=== PATIENT | female | born 1965 | race Caucasian/White ===

== ENCOUNTER 2016-09-04 17:51 | Emergency (ER) | payer BC, MEDICAID ==
[~2016-09-04] VITALS: Ht 167.6 cm; Wt 79.3 kg
[~2016-09-04 17:51] MED LIST: ACET1TAB52 PO; ACET325T14 PO; ALBU8.5H5 INH; AMIO200T42 PO; BRONCHAID PO; CEPH-368 PO; CLIN300C93 PO; DIPH25CA61 PO; GARL400T PO; HYDR-3138 PO; IBUP-1222 PO; IRON1TAB37 PO; METH750T2 PO; meloxicam PO
[2016-09-04] MEDS ORDERED: SODIUM CHLORIDE FLUSH 10ML SYR IVF ONE (18:30)
[2016-09-04] MEDS ORDERED: ONDANSETRON 2MG/ML, 2ML IVPush ONE (18:30)
[2016-09-04 18:43] LABS: ASPARTATE AMINO TRANSFERASE 38 U/L (15-37); BLOOD UREA NITROGEN 28 mg/dL (7-18)
[2016-09-04 18:46] VITALS: BP 164/98
[2016-09-04] MEDS ORDERED: ONDANSETRON 2MG/ML, 2ML ONE (19:02)
== END 2016-09-04 19:24 | disposition home or self-care (01) ==
LOC: ED 19:18
DX: G89.29 Other chronic pain (principal); R10.84 Generalized abdominal pain
CPT/HCPCS: 36415; 80053; 81003; 85025; 96374; 99284; J2405

== ENCOUNTER → 2017-01-09 | Outpatient (CLI) | payer MEDICAID ==
[~2017-01-09] MED LIST changes: +CLIN300C8 PO; -CLIN300C93 PO; -HYDR-3138 PO; +HYDR-3237 PO
== END | disposition home or self-care (01) ==
LOC: ROC 15:00
PROVIDERS: ATTEND Radiology Radiation Oncology
DX: C53.9 Malignant neoplasm of cervix uteri, unspecified (principal)
CPT/HCPCS: 99213; G0463

== ENCOUNTER 2020-10-06 16:29 | Emergency (ER) | payer MEDICAID ==
[~2020-10-06] VITALS: Ht 165.1 cm; Wt 73.0 kg
[~2020-10-06 16:29] MED LIST changes: -CLIN300C8 PO; +CLIN300C9 PO; +METH-640 PO; -METH750T2 PO
--- NOTE | 2020-10-06 16:51 | NUR ---
BRITNEY Juarez at bedside for eval.
[2020-10-06] MEDS ORDERED: ACETAMINOPHEN 500 MG TABLET PO ONE (17:00)
[2020-10-06] MEDS ORDERED: KETOROLAC 30 MG/1 ML IM ONE (17:00)
[2020-10-06] MEDS ORDERED: CYCLOBENZAPRINE 10 MG TABLET PO ONE (17:00)
[2020-10-06] MEDS ORDERED: KETOROLAC 30 MG/1 ML ONE (17:01)
[2020-10-06] MEDS ORDERED: ACETAMINOPHEN 500 MG TABLET ONE (17:02)
[2020-10-06] MEDS ORDERED: CYCLOBENZAPRINE 10 MG TABLET ONE (17:02)
--- NOTE | 2020-10-06 17:14 | NUR ---
Pt to imaging via [employer].
[2020-10-06 18:35] VITALS: BP 101/63
== END 2020-10-06 18:38 | disposition home or self-care (01) ==
LOC: ED 18:32
DX: S39.012A Strain of muscle, fascia and tendon of lower back, initial encounter (principal); M46.1 Sacroiliitis, not elsewhere classified; J45.909 Unspecified asthma, uncomplicated; X58.XXXA Exposure to other specified factors, initial encounter; Y93.89 Activity, other specified; Y92.89 Other specified places as the place of occurrence of the external cause; Y99.8 Other external cause status
CPT/HCPCS: 72110; 96372; 99283; J1885